=== PATIENT | female | born 1980 ===

== ENCOUNTER 2019-02-02 04:17 | Emergency (ER) | payer BC ==
--- NOTE | 2019-02-02 05:05 | ED PDOC ---
Arrival/HPI - General Chief Complaint: Abdominal Pain Time Seen by Provider: 02/02/19 04:45 Historian: Patient - History of Present Illness Narrative History of Present Illness (Text): 02/02/19 04:55 Marifer Brenner is a 39 year old female, with no significant past medical history, who presents to the ED complaining of chest pain. Patient states she has been experiencing chest pain, worsened with deep inspiration, since yesterd ay with associated generalized weakness, dizziness, and nausea. Patient denies any family history of CAD. Patient denies any fever, chills, chest pain, shortness of breath, nausea, vomiting, diarrhea, urinary symptoms, back pain, neck pain, headache, dizziness, history of tobacco abuse, or any other complaints. Symptom Onset: Gradual Symptom Course: Unchanged Activities at Onset: Light Context: Home Past Medical History - Provider Review Nursing Documentation Reviewed: Yes Primary Care Provider: Julissa Swift - Infectious Disease Hx of Infectious Diseases: None - Cardiac Hx Cardiac Disorders: Yes - Pulmonary Hx Respiratory Disorders: No - Neurological Hx Neurological Disorder: No - HEENT Hx HEENT Disorder: No - Renal Hx Renal Disorder: No - Endocrine/Metabolic Hx Endocrine Disorders: No - Hematological/Oncological Hx Blood Disorders: No - Integumentary Hx Dermatological Disorder: No - Musculoskeletal/Rheumatological Hx Musculoskeletal Disorders: No - Gastrointestinal Hx Gastrointestinal Disorders: No - Genitourinary/Gynecological Hx Genitourinary Disorders: No - Psychiatric Hx Psychophysiologic Disorder: No Hx Substance Use: No - Anesthesia Hx Anesthesia: No Family/Social History - Physician Review Nursing Documentation Reviewed: Yes Family/Social History: Unknown Family HX Smoking Status: Never Smoked Hx Alcohol Use: No Hx Substance Use: No Allergies/Home Meds Allergies/Adverse Reactions: Allergies No Known Allergies Allergy (Verified 02/02/19 11:32) Review of Systems - Physician Review All systems were reviewed & negative as marked: Yes - Review of Systems Constitutional: Normal. absent: Fevers Eyes: Normal ENT: Normal Respiratory: Normal. absent: SOB, Cough Cardiovascular: Chest Pain Gastrointestinal: Nausea Genitourinary Female: Normal. absent: Dysuria, Frequency, Hematuria, Urine Output Changes Musculoskeletal: Normal. absent: Back Pain, Neck Pain Skin: Normal. absent: Rash Neurological: Dizziness Endocrine: Normal Hemo/Lymphatic: Normal Psychiatric: Normal Physical Exam Vital Signs Reviewed: Yes Vital Signs Temp Pulse Resp BP Pulse Ox 02/02/19 04:55 87 18 124/73 97 02/02/19 04:38 97.9 F 109 H 15 122/51 L 100 Temperature: Afebrile Blood Pressure: Normal Pulse: Regular Respiratory Rate: Normal Appearance: Positive for: Well-Appearing, Non-Toxic, Comfortable Pain Distress: None Mental Status: Positive for: Alert and Oriented X 3 - Systems Exam Head: Present: Atraumatic, Normocephalic Pupils: Present: PERRL Extroacular Muscles: Present: EOMI Conjunctiva: Present: Normal Mouth: Present: Moist Mucous Membranes Neck: Present: Normal Range of Motion Respiratory/Chest: Present: Clear to Auscultation, Good Air Exchange. No: Respiratory Distress, Accessory Muscle Use Cardiovascular: Present: Regular Rate and Rhythm, Normal S1, S2. No: Murmurs Abdomen: No: Tenderness, Distention, Peritoneal Signs Back: Present: Normal Inspection Upper Extremity: Present: Normal Inspection. No: Cyanosis, Edema Lower Extremity: Present: Normal Inspection. No: Edema Neurological: Present: GCS=15, CN II-XII Intact, Speech Normal Skin: Present: Warm, Dry, Normal Color. No: Rashes Psychiatric: Present: Alert, Oriented x 3, Normal Insight, Normal Concentration Medical Decision Making ED Course and Treatment: 02/02/19 04:55 Impression: 39 year old female complaining of chest pain, generalized weakness, dizziness, and nausea. Plan: -- EKG -- Chest X-ray -- Labs, cardiac enzymes, D-dimer -- Urinalysis -- Reassess and disposition Prior Visits: Notes and results from previous visits were reviewed. Progress Notes: Reviewed EKG, sinus tachycardia at 110 bpm. Non-specific ST/T wave changes. 02/02/19 05:30 Chest X-ray reviewed, shows no acute processes. 02/02/19 05:58 Case discussed with medical payment poster detonator assembler, who is aware and agrees with plan. States they will sign out case to oncoming morning team. 02/02/19 06:12 Spoke with house physician, who will endorse case to oncoming hospitalist morning team. - EKG Interpretation Interpreted by ED Physician: Yes Type: 12 lead EKG - Scribe Statement The provider has reviewed the documentation as recorded by the Lobito Trent Provider Scribe Attestation: All medical record entries made by the Scribe were at my direction and personally dictated by me. I have reviewed the chart and agree that the record accurately reflects my personal performance of the history, physical exam, medical decision making, and the department course for this patient. I have also personally directed, reviewed, and agree with the discharge instructions and disposition. Disposition/Present on Arrival - Present on Arrival Any Indicators Present on Arrival: No History of DVT/PE: No History of Uncontrolled Diabetes: No Urinary Catheter: No History of Decub. Ulcer: No History Surgical Site Infection Following: None - Disposition Have Diagnosis and Disposition been Completed?: Yes Diagnosis: Chest pain Disposition: HOSPITALIZED Disposition Time: 06:15 Condition: GOOD Discharge Instructions (ExitCare): Chest Pain (ED) Additional Instructions: Your thyroid number (tsh) was high, thus we started you on synthroid 25 mcg daily You will need repeat in 4-6 weeks Please follow up with Dr. Santana in 3-5 days Please follow up with Dr. Velez, the interior design principal in a week Please return if the symptoms returns or call 911. Prescriptions: Levothyroxine [Synthroid] 25 mcg PO 0600 14 Days #14 tab Referrals: Danilo Velez MD [Staff Provider] - Julissa Swift MD [Family Provider] -
[2019-02-02 05:30] LABS: BASO # 0.02 K/mm3 (0.0-2.0); BASO % 0.4 % (0.0-3.0); EOS # 0.1 (0.0-0.7); EOS % 2.4 % (1.5-5.0); HEMOGLOBIN 12.7 g/dL (12.0-16.0); LYMPH # 2.5 (1.2-3.4); LYMPH % 45.2 % (22.0-35.0); MEAN CORPUSCULAR HEMOGLOBIN 30.4 pg (25.0-35.0); MEAN CORPUSCULAR HGB CONC 34.1 g/dl (31.0-37.0); MEAN PLATELET VOLUME 10.7 fl (7.0-11.0); MONO # 0.5 (0.1-0.6); MONO % 9.9 % (1.0-6.0); RBC 4.18 10^6/uL (3.5-6.1); RED CELL DISTRIBUTION WIDTH 12.1 % (11.5-14.5); WHITE BLOOD COUNT 5.4 10^3/uL (4.5-11.0)
[2019-02-02] MEDS ORDERED: Aspirin 325 mg EC Tablets PO STA (05:48)
[2019-02-02 05:51] LABS: TROPONIN I < 0.01 ng/mL
[2019-02-02 06:18] LABS: ALB/GLOB RATIO 1.4 (1.1-1.8); ALBUMIN 4.6 g/dL (3.0-4.8); ALT/SGPT 15 U/L (7-56); AST/SGOT 26 U/L (14-36); BLOOD UREA NITROGEN 9 mg/dL (7-21); CALCIUM 9.6 mg/dL (8.4-10.5); GFR NON-AFRICAN AMERICAN > 60
[2019-02-02 06:49] LABS: URINE BILIRUBIN NEGATIVE (NEGATIVE); URINE BLOOD TRACE-INTACT (NEGATIVE); URINE GLUCOSE (UA) NEGATIVE (NEGATIVE); URINE LEUKOCYTE ESTERASE NEGATIVE Leu/uL (NEGATIVE); URINE PROTEIN NEGATIVE mg/dL (<30 mg/dL); URINE UROBILINOGEN 0.2 E.U./dL (<1 E.U./dL)
[2019-02-02 06:50] LABS: URINE APPEARANCE SL CLOUDY (CLEAR); URINE COLOR YELLOW (YELLOW)
[2019-02-02 06:58] LABS: URINE BACTERIA MANY /hpf; URINE RBC 0 - 2 /hpf (0-2)
[2019-02-02 07:42] VITALS: RESP 18
[2019-02-02] MEDS ORDERED: Sodium Chloride 0.9% 1,000 ML IV SCH (08:00)
[2019-02-02 08:30] LABS: HDL CHOLESTEROL 53 mg/dL (29-60)
[2019-02-02 08:41] LABS: LDL CHOLESTEROL 122 mg/dL (0-129)
--- NOTE | 2019-02-02 09:22 | CT ---
Date of service: 02/02/2019 PROCEDURE: CT HEAD WITHOUT CONTRAST. HISTORY: Dizziness COMPARISON: None available. TECHNIQUE: Axial computed tomography images were obtained through the head/brain without intravenous contrast. Radiation dose: Total exam DLP = 715.14 mGy-cm. This CT exam was performed using one or more of the following dose reduction techniques: Automated exposure control, adjustment of the mA and/or kV according to patient size, and/or use of iterative reconstruction technique. FINDINGS: HEMORRHAGE: No intracranial hemorrhage. BRAIN: No mass effect or edema. No atrophy or chronic microvascular ischemic changes. VENTRICLES: Unremarkable. No hydrocephalus. CALVARIUM: Unremarkable. PARANASAL SINUSES: Unremarkable as visualized. No significant inflammatory changes. MASTOID AIR CELLS: Unremarkable as visualized. No inflammatory changes. OTHER FINDINGS: None. IMPRESSION: No acute intracranial pathology.
--- NOTE | 2019-02-02 09:52 | CP.PCM.HP ---
<Saeid Bales - Last Filed: 02/02/19 11:55> History of Present Illness - History of Present Illness History of Present Illness: Saeid Bales DO PGY1, H&P for Dr Lorna Diaz: Generalized weakness/ dizziness x1 day 39 y/o female with PMH of HLD presents to the ED with generalized body weakness and dizziness x1 day. Patient reports decreased oral intake on that day, no prior similar symptoms in the past. She denies associated syncope, loss of consciousness, blurry vision, recent sickness or sick contacts. Patient also reports left sided, sharp chest pain associated with palpitations that has been occurring for months. She was seen by Dr Ham, echo and stress test was done with no cardiac abnormality as per patient. He reports being in stress related to work/family situation. Patient denies current chest pain, changes in bowel movement, urinary symptoms, headache, focal neurological symptoms. 12 points ROS reviewed with pertinent positives as above PMH: HLD PSH: denies Meds: none ALL: NKDA FH: grand mother had HTN. Parents alive and healthy. No h/o premature CAD SH: drinks occasionally, no alcohol/drug use. 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 Work/family stressor PMD: [place] Present on Admission - Present on Admission Any Indicators Present on Admission: No Past Patient History - Infectious Disease Hx of Infectious Diseases: None - Past Social History Smoking Status: Never Smoked - CARDIAC Hx Cardiac Disorders: Yes - PULMONARY Hx Respiratory Disorders: No - NEUROLOGICAL Hx Neurological Disorder: No - HEENT Hx HEENT Problems: No - RENAL Hx Chronic Kidney Disease: No - ENDOCRINE/METABOLIC Hx Endocrine Disorders: No - HEMATOLOGICAL/ONCOLOGICAL Hx Blood Disorders: No - INTEGUMENTARY Hx Dermatological Problems: No - MUSCULOSKELETAL/RHEUMATOLOGICAL Hx Musculoskeletal Disorders: No - GASTROINTESTINAL Hx Gastrointestinal Disorders: No - GENITOURINARY/GYNECOLOGICAL Hx Genitourinary Disorders: No - PSYCHIATRIC Hx Psychophysiologic Disorder: No Hx Substance Use: No - SURGICAL HISTORY Hx Surgeries: No - ANESTHESIA Hx Anesthesia: No Meds Home Medications: Home Medication List Medication Instructions Recorded Confirmed Type Levothyroxine [Synthroid] 25 mcg PO 0600 14 Days #14 tab 02/02/19 Rx Allergies/Adverse Reactions: Allergies Allergy/AdvReac Type Severity Reaction Status Date / Time No Known Allergies Allergy Verified 02/02/19 11:32 Physical Exam - Constitutional Appears: Well, Non-toxic, No Acute Distress - Head Exam Head Exam: ATRAUMATIC, NORMAL INSPECTION, NORMOCEPHALIC - Eye Exam Eye Exam: EOMI, Normal appearance, PERRL Pupil Exam: NORMAL ACCOMODATION, PERRL - ENT Exam ENT Exam: Mucous Membranes Moist, Normal Exam - Neck Exam Neck exam: Positive for: Normal Inspection - Respiratory Exam Respiratory Exam: Clear to Auscultation Bilateral, NORMAL BREATHING PATTERN - Cardiovascular Exam Cardiovascular Exam: REGULAR RHYTHM, +S1, +S2. absent: Gallop, JVD, RRR, Rubs - GI/Abdominal Exam GI & Abdominal Exam: Normal Bowel Sounds, Soft. absent: Tenderness - Extremities Exam Extremities exam: Positive for: normal capillary refill, normal inspection, pedal pulses present - Back Exam Back exam: NORMAL INSPECTION - Neurological Exam Neurological exam: Alert, CN II-XII Intact, Normal Gait, Oriented x3, Reflexes Normal - Psychiatric Exam Psychiatric exam: Normal Affect, Normal Mood - Skin Skin Exam: Dry, Intact, Normal Color, Warm Results - Vital Signs Recent Vital Signs: Last Vital Signs Temp 98.2 F 02/02/19 07:41 Pulse 84 02/02/19 07:41 Resp 18 02/02/19 07:41 BP 112/77 02/02/19 07:41 Pulse Ox 100 02/02/19 07:41 - Labs Result Diagrams: 02/02/19 04:48 02/02/19 04:48 Labs: Laboratory Results - last 24 hr 02/02/19 02/02/19 02/02/19 04:48 04:48 04:48 WBC 5.4 RBC 4.18 Hgb 12.7 Hct 37.2 MCV 89.0 MCH 30.4 MCHC 34.1 RDW 12.1 Plt Count 290 MPV 10.7 Neut % (Auto) 42.1 L Lymph % (Auto) 45.2 H Early % (Auto) 9.9 H Eos % (Auto) 2.4 Baso % (Auto) 0.4 Lymph # (Auto) 2.5 Early # (Auto) 0.5 Eos # (Auto) 0.1 Baso # (Auto) 0.02 Absolute Neuts (auto) 2.29 D-Dimer, Quantitative < 200 Sodium 140 Potassium 4.0 Chloride 105 Carbon Dioxide 25 Anion Gap 15 BUN 9 Creatinine 0.7 Est GFR ( Amer) > 60 Est GFR (Non-Af Amer) > 60 Random Glucose 109 Calcium 9.6 Magnesium 1.9 Total Bilirubin 0.9 AST 26 ALT 15 Alkaline Phosphatase 63 Lactate Dehydrogenase 380 Total Creatine Kinase 149 Troponin I < 0.01 Total Protein 8.0 Albumin 4.6 Globulin 3.4 Albumin/Globulin Ratio 1.4 Triglycerides Cholesterol LDL Cholesterol Direct HDL Cholesterol TSH 3rd Generation Urine Color Urine Appearance Urine pH Ur Specific [place] Urine Protein Urine Glucose (UA) Urine Ketones Urine Blood Urine Nitrate Urine Bilirubin Urine Urobilinogen Ur Leukocyte Esterase Urine RBC Urine WBC Ur Epithelial Cells Urine Bacteria 02/02/19 02/02/19 02/02/19 06:33 07:50 07:50 WBC RBC Hgb Hct MCV MCH MCHC RDW Plt Count MPV Neut % (Auto) Lymph % (Auto) Early % (Auto) Eos % (Auto) Baso % (Auto) Lymph # (Auto) Early # (Auto) Eos # (Auto) Baso # (Auto) Absolute Neuts (auto) D-Dimer, Quantitative Sodium Potassium Chloride Carbon Dioxide Anion Gap BUN Creatinine Est GFR ( Amer) Est GFR (Non-Af Amer) Random Glucose Calcium Magnesium Total Bilirubin AST ALT Alkaline Phosphatase Lactate Dehydrogenase Total Creatine Kinase Troponin I Total Protein Albumin Globulin Albumin/Globulin Ratio Triglycerides 61 Cholesterol 201 H LDL Cholesterol Direct 122 HDL Cholesterol 53 TSH 3rd Generation 8.76 H Urine Color Yellow Urine Appearance Sl cloudy Urine pH 6.0 Ur Specific [place] >= 1.030 Urine Protein Negative Urine Glucose (UA) Negative Urine Ketones Trace H Urine Blood Trace-intact H Urine Nitrate Positive H Urine Bilirubin Negative Urine Urobilinogen 0.2 Ur Leukocyte Esterase Negative Urine RBC 0 - 2 Urine WBC 2 - 5 Ur Epithelial Cells 4 - 5 Urine Bacteria Many Assessment & Plan - Assessment and Plan (Free Text) Assessment: 39 y/o famle with PMH of HLD presents with generalized body weakness/dizziness x1 day Plan: Generalized body weakness: -symptoms improved in ED s/p IVF -Flory-Hallpike negative -orthostatics vitals negative -elevated TSH -T4 normal -started levothyroxine 25 mcg daily -lipid profile, Chol 201 -UA: positive for nitrate. patient asymptomatic h/o chest pain: -EKG: sinus tachy @110. no ST-T changes -CXR: NAD -trop negative x1. will trend -D-dimer negative -patient had recent echo, stress test that was normal PPX: -GI: pepcid -HHD Case reviewed and plan discussed with Dr Lorna Bales, DO PGY1 <Josue Rothman - Last Filed: 02/02/19 14:23> Results - Vital Signs Recent Vital Signs: Last Vital Signs Temp 98 F 02/02/19 11:44 Pulse 82 02/02/19 11:44 Resp 18 02/02/19 11:44 BP 112/59 L 02/02/19 11:44 Pulse Ox 99 02/02/19 11:44 - Labs Result Diagrams: 02/02/19 04:48 02/02/19 04:48 Labs: Laboratory Results - last 24 hr 02/02/19 02/02/19 02/02/19 04:48 04:48 04:48 WBC 5.4 RBC 4.18 Hgb 12.7 Hct 37.2 MCV 89.0 MCH 30.4 MCHC 34.1 RDW 12.1 Plt Count 290 MPV 10.7 Neut % (Auto) 42.1 L Lymph % (Auto) 45.2 H Early % (Auto) 9.9 H Eos % (Auto) 2.4 Baso % (Auto) 0.4 Lymph # (Auto) 2.5 Early # (Auto) 0.5 Eos # (Auto) 0.1 Baso # (Auto) 0.02 Absolute Neuts (auto) 2.29 D-Dimer, Quantitative < 200 Sodium 140 Potassium 4.0 Chloride 105 Carbon Dioxide 25 Anion Gap 15 BUN 9 Creatinine 0.7 Est GFR ( Amer) > 60 Est GFR (Non-Af Amer) > 60 Random Glucose 109 Calcium 9.6 Magnesium 1.9 Total Bilirubin 0.9 AST 26 ALT 15 Alkaline Phosphatase 63 Lactate Dehydrogenase 380 Total Creatine Kinase 149 Troponin I < 0.01 Total Protein 8.0 Albumin 4.6 Globulin 3.4 Albumin/Globulin Ratio 1.4 Triglycerides Cholesterol LDL Cholesterol Direct HDL Cholesterol Free T4 TSH 3rd Generation Urine Color Urine Appearance Urine pH Ur Specific [place] Urine Protein Urine Glucose (UA) Urine Ketones Urine Blood Urine Nitrate Urine Bilirubin Urine Urobilinogen Ur Leukocyte Esterase Urine RBC Urine WBC Ur Epithelial Cells Urine Bacteria 02/02/19 02/02/19 02/02/19 06:33 07:50 07:50 WBC RBC Hgb Hct MCV MCH MCHC RDW Plt Count MPV Neut % (Auto) Lymph % (Auto) Early % (Auto) Eos % (Auto) Baso % (Auto) Lymph # (Auto) Early # (Auto) Eos # (Auto) Baso # (Auto) Absolute Neuts (auto) D-Dimer, Quantitative Sodium Potassium Chloride Carbon Dioxide Anion Gap BUN Creatinine Est GFR ( Amer) Est GFR (Non-Af Amer) Random Glucose Calcium Magnesium Total Bilirubin AST ALT Alkaline Phosphatase Lactate Dehydrogenase Total Creatine Kinase Troponin I Total Protein Albumin Globulin Albumin/Globulin Ratio Triglycerides 61 Cholesterol 201 H LDL Cholesterol Direct 122 HDL Cholesterol 53 Free T4 TSH 3rd Generation 8.76 H Urine Color Yellow Urine Appearance Sl cloudy Urine pH 6.0 Ur Specific [place] >= 1.030 Urine Protein Negative Urine Glucose (UA) Negative Urine Ketones Trace H Urine Blood Trace-intact H Urine Nitrate Positive H Urine Bilirubin Negative Urine Urobilinogen 0.2 Ur Leukocyte Esterase Negative Urine RBC 0 - 2 Urine WBC 2 - 5 Ur Epithelial Cells 4 - 5 Urine Bacteria Many 02/02/19 02/02/19 09:59 10:00 WBC RBC Hgb Hct MCV MCH MCHC RDW Plt Count MPV Neut % (Auto) Lymph % (Auto) Early % (Auto) Eos % (Auto) Baso % (Auto) Lymph # (Auto) Early # (Auto) Eos # (Auto) Baso # (Auto) Absolute Neuts (auto) D-Dimer, Quantitative Sodium Potassium Chloride Carbon Dioxide Anion Gap BUN Creatinine Est GFR ( Amer) Est GFR (Non-Af Amer) Random Glucose Calcium Magnesium Total Bilirubin AST ALT Alkaline Phosphatase Lactate Dehydrogenase Total Creatine Kinase Troponin I < 0.01 Total Protein Albumin Globulin Albumin/Globulin Ratio Triglycerides Cholesterol LDL Cholesterol Direct HDL Cholesterol Free T4 0.98 TSH 3rd Generation Urine Color Urine Appearance Urine pH Ur Specific [place] Urine Protein Urine Glucose (UA) Urine Ketones Urine Blood Urine Nitrate Urine Bilirubin Urine Urobilinogen Ur Leukocyte Esterase Urine RBC Urine WBC Ur Epithelial Cells Urine Bacteria Attending/Attestation - Attestation I have personally seen and examined this patient.: Yes I have fully participated in the care of the patient.: Yes I have reviewed all pertinent clinical information: Yes Notes (Text): 02/02/19 14:21 Attending note; Patient seen and examined with resident in ER. Patient is alert and awake. Currently denies any chest pain, shortness of breath. Denies any palpitation. Denies any dizziness, nausea, vomiting. Denies any urinary, bowel symptoms. Denies any fevers, chills. Patient is a 39-year-old female with PMH of HLD presents to the ED with ge neralized body weakness and dizziness x1 day. Patient reports decreased oral intake on that day, no prior similar symptoms in the past. 1. Chest pain; atypical symptoms. Currently resolved. EKG with no acute ST-T changes. Cardiac enzymes negative. According to the patient she had a recent work-up with echocardiogram and stress test which was negative at Dr. Javier's office. 2. Dizziness; CT head is negative. Mostly secondary to poor p.o. intake. Resolved after IV fluids. Possibly stress related. 3. Hypothyroidism; started on Synthroid. Patient wanted to go home today. Advised to follow-up with PMD Dr. Santana. Advised to follow-up with cardiology as needed.
--- NOTE | 2019-02-02 11:08 | RAD ---
Date of service: 02/02/2019 HISTORY: cp COMPARISON: No prior. TECHNIQUE: 1 view obtained. FINDINGS: LUNGS: No active pulmonary disease. PLEURA: No significant pleural effusion identified, no pneumothorax apparent. CARDIOVASCULAR: No aortic atherosclerotic calcification present. Normal cardiac size. No pulmonary vascular congestion. OSSEOUS STRUCTURES: No significant abnormalities. VISUALIZED UPPER ABDOMEN: Normal. OTHER FINDINGS: None. IMPRESSION: No active disease.
--- NOTE | 2019-02-02 11:26 | CP.PCM.DIS ---
<Saeid Bales - Last Filed: 02/02/19 11:55> Provider - Provider Date of Admission: 02/02/19 06:11 Attending physician: Josue Rothman MD Consults: 02/02/19 07:13 Consult [Physician Consult] Routine Comment: Consulting Provider: Danilo Velez Consulting Physician: Danilo Velez Reason for Consult: chest pain Time Spent in preparation of Discharge (in minutes): 35 Hospital Course - Lab Results Lab Results: Most Recent Lab Values WBC 5.4 10^3/uL (4.5-11.0) 02/02/19 04:48 RBC 4.18 10^6/uL (3.5-6.1) 02/02/19 04:48 Hgb 12.7 g/dL (12.0-16.0) 02/02/19 04:48 Hct 37.2 % (36.0-48.0) 02/02/19 04:48 MCV 89.0 fl (80.0-105.0) 02/02/19 04:48 MCH 30.4 pg (25.0-35.0) 02/02/19 04:48 MCHC 34.1 g/dl (31.0-37.0) 02/02/19 04:48 RDW 12.1 % (11.5-14.5) 02/02/19 04:48 Plt Count 290 10^3/uL (120.0-450.0) 02/02/19 04:48 MPV 10.7 fl (7.0-11.0) 02/02/19 04:48 Neut % (Auto) 42.1 % (50.0-68.0) L 02/02/19 04:48 Lymph % (Auto) 45.2 % (22.0-35.0) H 02/02/19 04:48 Phelps % (Auto) 9.9 % (1.0-6.0) H 02/02/19 04:48 Eos % (Auto) 2.4 % (1.5-5.0) 02/02/19 04:48 Baso % (Auto) 0.4 % (0.0-3.0) 02/02/19 04:48 Lymph # (Auto) 2.5 (1.2-3.4) 02/02/19 04:48 Phelps # (Auto) 0.5 (0.1-0.6) 02/02/19 04:48 Eos # (Auto) 0.1 (0.0-0.7) 02/02/19 04:48 Baso # (Auto) 0.02 K/mm3 (0.0-2.0) 02/02/19 04:48 Absolute Neuts (auto) 2.29 (1.4-6.5) 02/02/19 04:48 D-Dimer, Quantitative < 200 ng/mlDDU (0-243) 02/02/19 04:48 Sodium 140 mmol/L (132-148) 02/02/19 04:48 Potassium 4.0 mmol/L (3.6-5.0) 02/02/19 04:48 Chloride 105 mmol/L (98-107) 02/02/19 04:48 Carbon Dioxide 25 mmol/L (21-33) 02/02/19 04:48 Anion Gap 15 (10-20) 02/02/19 04:48 BUN 9 mg/dL (7-21) 02/02/19 04:48 Creatinine 0.7 mg/dl (0.7-1.2) 02/02/19 04:48 Est GFR ( Amer) > 60 02/02/19 04:48 Est GFR (Non-Af Amer) > 60 02/02/19 04:48 Random Glucose 109 mg/dL (70-110) 02/02/19 04:48 Calcium 9.6 mg/dL (8.4-10.5) 02/02/19 04:48 Magnesium 1.9 mg/dL (1.7-2.2) 02/02/19 04:48 Total Bilirubin 0.9 mg/dL (0.2-1.3) 02/02/19 04:48 AST 26 U/L (14-36) 02/02/19 04:48 ALT 15 U/L (7-56) 02/02/19 04:48 Alkaline Phosphatase 63 U/L (38-126) 02/02/19 04:48 Lactate Dehydrogenase 380 U/L (333-699) 02/02/19 04:48 Total Creatine Kinase 149 U/L (35-230) 02/02/19 04:48 Troponin I < 0.01 ng/mL 02/02/19 09:59 Total Protein 8.0 g/dL (5.8-8.3) 02/02/19 04:48 Albumin 4.6 g/dL (3.0-4.8) 02/02/19 04:48 Globulin 3.4 gm/dL 02/02/19 04:48 Albumin/Globulin Ratio 1.4 (1.1-1.8) 02/02/19 04:48 Triglycerides 61 mg/dL (35-160) 02/02/19 07:50 Cholesterol 201 mg/dL (130-200) H 02/02/19 07:50 LDL Cholesterol Direct 122 mg/dL (0-129) 02/02/19 07:50 HDL Cholesterol 53 mg/dL (29-60) 02/02/19 07:50 Free T4 0.98 ng/dL (0.78-2.19) 02/02/19 10:00 TSH 3rd Generation 8.76 mIU/mL (0.46-4.68) H 02/02/19 07:50 Urine Color Yellow (YELLOW) 02/02/19 06:33 Urine Appearance Sl cloudy (CLEAR) 02/02/19 06:33 Urine pH 6.0 (4.7-8.0) 02/02/19 06:33 Ur Specific Brandon >= 1.030 (1.005-1.035) 02/02/19 06:33 Urine Protein Negative mg/dL (<30 mg/dL) 02/02/19 06:33 Urine Glucose (UA) Negative mg/dL (NEGATIVE) 02/02/19 06:33 Urine Ketones Trace mg/dL (NEGATIVE) H 02/02/19 06:33 Urine Blood Trace-intact (NEGATIVE) H 02/02/19 06:33 Urine Nitrate Positive (NEGATIVE) H 02/02/19 06:33 Urine Bilirubin Negative (NEGATIVE) 02/02/19 06:33 Urine Urobilinogen 0.2 E.U./dL (<1 E.U./dL) 02/02/19 06:33 Ur Leukocyte Esterase Negative Giorgi/uL (NEGATIVE) 02/02/19 06:33 Urine RBC 0 - 2 /hpf (0-2) 02/02/19 06:33 Urine WBC 2 - 5 /hpf (0-6) 02/02/19 06:33 Ur Epithelial Cells 4 - 5 /hpf (0-5) 02/02/19 06:33 Urine Bacteria Many /hpf (NONE) 02/02/19 06:33 - Hospital Course Hospital Course: 39 y/o female with PMH of HLD presents to the ED with generalized body weakness and dizziness x1 day. Patient reports decreased oral intake on that day, no prior similar symptoms in the past. She denies associated syncope, loss of consciousness, blurry vision, recent sickness or sick contacts. Patient reported symptoms improved in ED s/p IVF, Flory-Hallpike negative, orthostatics vitals negative. Lab showed elevated TSH, normal T4, high cholesterol. UA was positive for nitrate. patient asymptomatic. Patient also c/o chest pain for many months with outpatient negative cardiac work up including echo and stress test. EKG was sinus tachy with no ST-T changes, CXR showed NAD, trops negative x2, D-dimer negative. 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 Discharge Exam - Head Exam Head Exam: ATRAUMATIC, NORMAL INSPECTION, NORMOCEPHALIC - Additional Findings Additional findings: - Constitutional Appears: Well, Non-toxic, No Acute Distress - Head Exam Head Exam: ATRAUMATIC, NORMAL INSPECTION, NORMOCEPHALIC - Eye Exam Eye Exam: EOMI, Normal appearance, PERRL Pupil Exam: NORMAL ACCOMODATION, PERRL - ENT Exam ENT Exam: Mucous Membranes Moist, Normal Exam - Neck Exam Neck exam: Positive for: Normal Inspection - Respiratory Exam Respiratory Exam: Clear to Auscultation Bilateral, NORMAL BREATHING PATTERN - Cardiovascular Exam Cardiovascular Exam: REGULAR RHYTHM, +S1, +S2. absent: Gallop, JVD, RRR, Rubs - GI/Abdominal Exam GI & Abdominal Exam: Normal Bowel Sounds, Soft. absent: Tenderness - Extremities Exam Extremities exam: Positive for: normal capillary refill, normal inspection, pedal pulses present - Back Exam Back exam: NORMAL INSPECTION - Neurological Exam Neurological exam: Alert, CN II-XII Intact, Normal Gait, Oriented x3, Reflexes Normal - Psychiatric Exam Psychiatric exam: Normal Affect, Normal Mood - Skin Skin Exam: Dry, Intact, Normal Color, Warm Discharge Plan - Discharge Medications Prescriptions: Levothyroxine [Synthroid] 25 mcg PO 0600 14 Days #14 tab - Follow Up Plan Condition: GOOD Disposition: HOME/ ROUTINE Additional Instructions: Your thyroid number (tsh) was high, thus we started you on synthroid 25 mcg daily You will need repeat in 4-6 weeks Please follow up with Dr. Santana in 3-5 days Please follow up with Dr. Velez, the racking machine operator in a week Please return if the symptoms returns or call 911. Referrals: Danilo Velez MD [Staff Provider] - Julissa Swift MD [Family Provider] - <Josue Rothman - Last Filed: 02/02/19 14:24> Provider - Provider Consults: 02/02/19 07:13 Consult [Physician Consult] Routine Comment: Consulting Provider: Danilo Velez Consulting Physician: Danilo Velez Reason for Consult: chest pain Hospital Course - Lab Results Lab Results: Most Recent Lab Values WBC 5.4 10^3/uL (4.5-11.0) 02/02/19 04:48 RBC 4.18 10^6/uL (3.5-6.1) 02/02/19 04:48 Hgb 12.7 g/dL (12.0-16.0) 02/02/19 04:48 Hct 37.2 % (36.0-48.0) 02/02/19 04:48 MCV 89.0 fl (80.0-105.0) 02/02/19 04:48 MCH 30.4 pg (25.0-35.0) 02/02/19 04:48 MCHC 34.1 g/dl (31.0-37.0) 02/02/19 04:48 RDW 12.1 % (11.5-14.5) 02/02/19 04:48 Plt Count 290 10^3/uL (120.0-450.0) 02/02/19 04:48 MPV 10.7 fl (7.0-11.0) 02/02/19 04:48 Neut % (Auto) 42.1 % (50.0-68.0) L 02/02/19 04:48 Lymph % (Auto) 45.2 % (22.0-35.0) H 02/02/19 04:48 Phelps % (Auto) 9.9 % (1.0-6.0) H 02/02/19 04:48 Eos % (Auto) 2.4 % (1.5-5.0) 02/02/19 04:48 Baso % (Auto) 0.4 % (0.0-3.0) 02/02/19 04:48 Lymph # (Auto) 2.5 (1.2-3.4) 02/02/19 04:48 Phelps # (Auto) 0.5 (0.1-0.6) 02/02/19 04:48 Eos # (Auto) 0.1 (0.0-0.7) 02/02/19 04:48 Baso # (Auto) 0.02 K/mm3 (0.0-2.0) 02/02/19 04:48 Absolute Neuts (auto) 2.29 (1.4-6.5) 02/02/19 04:48 D-Dimer, Quantitative < 200 ng/mlDDU (0-243) 02/02/19 04:48 Sodium 140 mmol/L (132-148) 02/02/19 04:48 Potassium 4.0 mmol/L (3.6-5.0) 02/02/19 04:48 Chloride 105 mmol/L (98-107) 02/02/19 04:48 Carbon Dioxide 25 mmol/L (21-33) 02/02/19 04:48 Anion Gap 15 (10-20) 02/02/19 04:48 BUN 9 mg/dL (7-21) 02/02/19 04:48 Creatinine 0.7 mg/dl (0.7-1.2) 02/02/19 04:48 Est GFR ( Amer) > 60 02/02/19 04:48 Est GFR (Non-Af Amer) > 60 02/02/19 04:48 Random Glucose 109 mg/dL (70-110) 02/02/19 04:48 Calcium 9.6 mg/dL (8.4-10.5) 02/02/19 04:48 Magnesium 1.9 mg/dL (1.7-2.2) 02/02/19 04:48 Total Bilirubin 0.9 mg/dL (0.2-1.3) 02/02/19 04:48 AST 26 U/L (14-36) 02/02/19 04:48 ALT 15 U/L (7-56) 02/02/19 04:48 Alkaline Phosphatase 63 U/L (38-126) 02/02/19 04:48 Lactate Dehydrogenase 380 U/L (333-699) 02/02/19 04:48 Total Creatine Kinase 149 U/L (35-230) 02/02/19 04:48 Troponin I < 0.01 ng/mL 02/02/19 09:59 Total Protein 8.0 g/dL (5.8-8.3) 02/02/19 04:48 Albumin 4.6 g/dL (3.0-4.8) 02/02/19 04:48 Globulin 3.4 gm/dL 02/02/19 04:48 Albumin/Globulin Ratio 1.4 (1.1-1.8) 02/02/19 04:48 Triglycerides 61 mg/dL (35-160) 02/02/19 07:50 Cholesterol 201 mg/dL (130-200) H 02/02/19 07:50 LDL Cholesterol Direct 122 mg/dL (0-129) 02/02/19 07:50 HDL Cholesterol 53 mg/dL (29-60) 02/02/19 07:50 Free T4 0.98 ng/dL (0.78-2.19) 02/02/19 10:00 TSH 3rd Generation 8.76 mIU/mL (0.46-4.68) H 02/02/19 07:50 Urine Color Yellow (YELLOW) 02/02/19 06:33 Urine Appearance Sl cloudy (CLEAR) 02/02/19 06:33 Urine pH 6.0 (4.7-8.0) 02/02/19 06:33 Ur Specific Brandon >= 1.030 (1.005-1.035) 02/02/19 06:33 Urine Protein Negative mg/dL (<30 mg/dL) 02/02/19 06:33 Urine Glucose (UA) Negative mg/dL (NEGATIVE) 02/02/19 06:33 Urine Ketones Trace mg/dL (NEGATIVE) H 02/02/19 06:33 Urine Blood Trace-intact (NEGATIVE) H 02/02/19 06:33 Urine Nitrate Positive (NEGATIVE) H 02/02/19 06:33 Urine Bilirubin Negative (NEGATIVE) 05/27/19 06:33 Urine Urobilinogen 0.2 E.U./dL (<1 E.U./dL) 02/02/19 06:33 Ur Leukocyte Esterase Negative Giorgi/uL (NEGATIVE) 02/02/19 06:33 Urine RBC 0 - 2 /hpf (0-2) 02/02/19 06:33 Urine WBC 2 - 5 /hpf (0-6) 02/02/19 06:33 Ur Epithelial Cells 4 - 5 /hpf (0-5) 02/02/19 06:33 Urine Bacteria Many /hpf (NONE) 02/02/19 06:33 Attending/Attestation - Attestation I have personally seen and examined this patient.: Yes I have fully participated in the care of the patient.: Yes I have reviewed all pertinent clinical information, including history, physical exam and plan: Yes Notes (Text): 02/02/19 14:23 Attending note; Patient seen and examined with resident in ER. Patient is alert and awake. Currently denies any chest pain, shortness of breath. Denies any palpitation. Denies any dizziness, nausea, vomiting. Denies any urinary, bowel symptoms. Denies any fevers, chills. Patient is a 39-year-old female with PMH of HLD presents to the ED with generalized body weakness and dizziness x1 day. Patient reports decreased oral intake on that day, no prior similar symptoms in the past. 1. Chest pain; atypical symptoms. Currently resolved. EKG with no acute ST-T changes. Cardiac enzymes x 2 negative. According to the patient she had a recent work-up with echocardiogram and stress test which was negative at Dr. Javier's office. 2. Dizziness; CT head is negative. Mostly secondary to poor p.o. intake. Resolved after IV fluids. Possibly stress related. 3. Hypothyroidism; started on Synthroid. Patient wanted to go home today. Advised to follow-up with PMD Dr. Santana. Advised to follow-up with cardiology as needed.
[2019-02-02 11:45] VITALS: BP 112/59; PULSE 82; TEMP 98; O2SAT 99
[2019-02-03] MEDS ORDERED: Levothyroxine 25 MCG TAB PO SCH (06:00)
--- NOTE | 2019-02-03 11:17 | CARD ---
APPROVED REPORT Date of service: 02/02/2019 EKG Measurement Heart [id number] <Conclusion> Sinus tachycardia Possible Left atrial enlargement Rightward axis T wave abnormality, consider inferior ischemia Abnormal ECG
== END 2019-02-02 11:45 | disposition home or self-care (01) ==
LOC: ED 04:17 → ERH 06:11 → UNDOADMOB 06:11 → ERH 06:56
DX: R07.9 Chest pain, unspecified (principal); E78.5 Hyperlipidemia, unspecified; Z82.49 Family history of ischemic heart disease and other diseases of the circulatory system; E03.9 Hypothyroidism, unspecified
CPT/HCPCS: 70450; 71045; 80053; 80061; 81001; 81025; 82550; 83615; 83735; 84439; 84443; 84484; 85025; 85378; 87086; 87181; 93005; 99285; J7030